=== PATIENT | male | born 1995 | race Two or more races ===

== ENCOUNTER → 2019-06-01 | Outpatient (CLI) | payer SELFPAY ==
[2019-06-01 17:19] LABS: A TYPE INFLUENZA AG POSITIVE (NEGATIVE); B INFLUENZA AG NEGATIVE (NEGATIVE)
[2019-06-02 19:35] VITALS: BP 146/89
--- NOTE | 2019-06-02 19:35 | ER RDC ASSESSMENT REPORT ---
Intake - In the Last 14 days Have you traveled outside [place]?: No Have you been in close contact with someone CONFIRMED: No Worked in Healthcare?: No - Symptoms --How many day(s)?: 7 Chills: Yes --How many day(s)?: 7 Muscule Aches: Yes --How many day(s)?: 7 --How many day(s)?: 7 --How many day(s)?: 3 days, now resolved --How many day(s)?: 7 Shortness of breath: No --How many day(s)?: 3 --How many day(s)?: 7 Abdominal Pain: No Diarrhea(3 or more loose stools in last 24 hours): Yes --How many day(s)?: 4 - Do you have any of the following Chronic Lung Disease Comment: asthma Cystic Fibrosis: No High Blood Pressure: Yes Cardiovascular Disease: No Chronic Kidney Disease: No Chronic blood disorder like Sickle Cell Disease: No Weak immune system due to disease or medication: No - Objective Temperature: 97.1 F Pulse Rate: 79 Respiratory Rate: 16 Blood Pressure: 146/89 O2 Sat by Pulse Oximetry: 96 Objective: Given above, testing performed: Flu A/B, Rapid strep If Testing Performed: Test Specimen Type Sent to Disposition: Home; Selfcare General - General Chief Complaint: Flu Symptoms Stated Complaint: flu-like symptoms Mode of Arrival: Ambulatory Information source: Patient - HPI Patient complains to provider of: cough, fever (100.8), chills, body aches, sore throat, diarrhea Onset: Last week Onset/Duration: Gradual, Persistent Associated symptoms: Body/muscle aches, Chills, Productive cough, Diarrhea, Fever, Headache, Nausea, Rhinnorhea, Sore throat Exacerbated by: Coughing Relieved by: Sitting, Other - OTC meds, albuterol Similar symptoms previously: No Recently seen / treated by doctor: Yes - PCP just started pt on prednisone course after telehealth consult - Related Data Allergies/Adverse Reactions: No Known Allergies Allergy (Unverified 06/02/19 13:54) Past Medical History - General Information source: Patient - Social History Smoking Status: Never Smoker Frequency of alcohol use: Occasional Drug Abuse: None Family History: Reviewed & Not Pertinent - Past Medical History Cardiac Medical History: Reports: Hx Hypertension Pulmonary Medical History: Reports: Hx Asthma EENT Medical History: Reports: None Neurological Medical History: Reports: None Endocrine Medical History: Reports: None Renal/ Medical History: Reports: None Malignancy Medical History: Reports None GI Medical History: Reports: None Musculoskeletal Medical History: Reports None Skin Medical History: Reports None Psychiatric Medical History: Reports: None Traumatic Medical History: Reports: None Infectious Medical History: Reports: None Past Surgical History: Reports: None Physical Exam - Vital signs Interpretation: Hypertensive - General General appearance: Appears well In distress: None - HEENT Head: Normocephalic Eyes: Normal Conjunctiva: Normal Sinus: Normal Nasal: Clear rhinorrhea Mouth/Lips: Normal Mucous membranes: Normal Neck: Normal - Respiratory Respiratory status: No respiratory distress. No: Respiratory distress, Agonal respirations, Cyanosis, Depressed respirations, Labored, Pursed lip breathing, Retractions, Tachypnea, Tripod position, Other Chest status: Nontender Breath sounds: Productive cough. No: Normal, Decreased air movement, Nonproductive cough, Rales, Rhonchi, Stridor, Wheezing, Other Chest palpation: Normal - Cardiovascular Rhythm: Regular Heart sounds: Normal auscultation Murmur: No Pulses: Normal: Radial - Abdominal Inspection: Normal Distension: No distension Bowel sounds: Normal Tenderness: Nontender Organomegaly: No organomegaly - Neurological Neuro grossly intact: Yes Cognition: Normal Orientation: AAOx4 [place] Coma Scale Eye Opening: Spontaneous Mary Coma Scale Verbal: Oriented [place] Coma Scale Motor: Obeys Commands Mary Coma Scale Total: 15 Speech: Normal - Psychological Associated symptoms: Normal affect, Normal mood Diagnostic Results Laboratory Results: 06/01/19 16:10 Throat Throat Culture - Final Group A Beta Streptococcus Normal Taniya Influenza A (Rapid) POSITIVE (NEGATIVE) 06/01/19 16:10 Influenza B (Rapid) NEGATIVE (NEGATIVE) 06/01/19 16:10 Group A Strep Rapid NEGATIVE (NEGATIVE) 06/01/19 16:10 Patient Education/Counseling Counseling/Education: Influenza instructions provided including treatment, isolation precautions, s/s to monitor for Guidance for worsening S/SX: ER for severe SOB RDC Discharge - Discharge Clinical Impression: Influenza A Asthma Qualifiers: Asthma severity: mild Asthma persistence: persistent Asthma complication type: with acute exacerbation Qualified Code(s): J45.31 - Mild persistent asthma with (acute) exacerbation Hypertension Qualifiers: Hypertension type: unspecified Qualified Code(s): I10 - Essential (primary) hypertension Condition: Stable
== END ==
LOC: RDC 16:07
PROVIDERS: ATTEND Registered Nurse
DX: Z20.828 Contact with and (suspected) exposure to other viral communicable diseases (principal)
CPT/HCPCS: 87070; 87077; 87804; 87880

== ENCOUNTER → 2019-07-14 | Outpatient (CLI) | payer OTHER ==
--- NOTE | 2019-07-14 13:42 | RADIOLOGY REPORT (SQ) ---
EXAM DESCRIPTION: MRI RT UPPER JOINT WITHOUT IMAGES COMPLETED DATE/TIME: 07/14/2019 11:44 am REASON FOR STUDY: (M25.531)PAIN IN RIGHT WRIST M25.531 PAIN IN RIGHT WRIST COMPARISON: None. TECHNIQUE: Right wrist images acquired and stored on PACS. Multiplanar images include fat sensitive sequences as T1, fluid sensitive sequences as FST2/STIR, cartilage sensitive sequences as FSPD, grad ient echo sequences. LIMITATIONS: Motion. FINDINGS: BONE MARROW: Mild edema in the mid and distal scaphoid. No fracture identified. Subchond ral cyst formation capitate. CARPAL ALIGNMENT AND ARTICULATION: Normal congruity of sigmoid notch at level of distal RUJ without p ositive or negative ulnar variance. Normal capitolunate angle. No widening of scapholunate articulati on. EFFUSION: None noted. No loose bodies. SCAPHOLUNATE LIGAMENT: Intact without tear. LUNATE-TRIQUETRAL LIGAMENT: Intact without tear. TFC COMPLEX: Radial and ulnar attachments normal. Meniscus intact. Extensor carpi ulnaris tendon norm al without tendinopathy. EXTRINSIC LIGAMENTS AND DISTAL RADIO-ULNAR JOINT: Dorsal and volar distal RUJ intact without subluxat ion of the distal ulna. 1-6 EXTENSOR COMPARTMENTS: Normal. Specifically no tendinopathy of the abductor pollicis longus or ex tensor pollicis brevis to suggest de Quervain's Syndrome. CARPAL TUNNEL AND MEDIAN NERVE: Normal volume and morphology of the carpal tunnel proximally at the l evel of the radiocarpal joint and distally at the hook of the hamate. No thickening or signal alterat ion of the median nerve. OTHER: No other significant finding. IMPRESSION: Subtle subchondral edema in the distal scaphoid. No fracture identified. TECHNICAL DOCUMENTATION: JOB ID: [id number] 2010 [employer]- All Rights Reserved Reading location - IP/workstation name: [email or web address]
== END ==
LOC: RAD 10:00
PROVIDERS: ATTEND Orthopaedic Surgery
DX: M25.531 Pain in right wrist (principal); M85.631 Other cyst of bone, right forearm